=== PATIENT | female | born 1970 | race Hispanic/Latino ===

== ENCOUNTER → 2017-08-31 | Outpatient (CLI) | payer OTHER | LOC: RAH 14:07 | PROVIDERS: ATTEND Family Medicine | DX: R92.2 Inconclusive mammogram (principal); N64.52 Nipple discharge | CPT/HCPCS: 76641; 77066 ==

== ENCOUNTER → 2017-09-14 | Outpatient (CLI) | payer OTHER ==
[~2017-09-14] MED LIST: IOPAMIDOL-370 75 ML VIAL IV ONE
== END | disposition home or self-care (01) ==
LOC: RAH 08:44
PROVIDERS: ATTEND Family Medicine
DX: D44.11 Neoplasm of uncertain behavior of right adrenal gland (principal)
CPT/HCPCS: 74177; Q9967

== ENCOUNTER → 2019-02-02 | Outpatient (CLI) | payer OTHER | END | disposition home or self-care (01) | LOC: RAH 08:32 | PROVIDERS: ATTEND Family Medicine | DX: R92.8 Other abnormal and inconclusive findings on diagnostic imaging of breast (principal) | CPT/HCPCS: 77066 ==

== ENCOUNTER → 2021-06-18 | Outpatient (CLI) | payer OTHER | END | disposition home or self-care (01) | LOC: RAH 11:25 | PROVIDERS: ATTEND Family Medicine | DX: R92.2 Inconclusive mammogram (principal); R92.8 Other abnormal and inconclusive findings on diagnostic imaging of breast | CPT/HCPCS: 77066 ==

== ENCOUNTER → 2022-12-09 | Outpatient (CLI) | payer OTHER | END | disposition home or self-care (01) | LOC: RAH 13:59 | PROVIDERS: ATTEND Family Medicine | DX: Z12.31 Encounter for screening mammogram for malignant neoplasm of breast (principal) | CPT/HCPCS: 77067 ==

== ENCOUNTER → 2023-01-04 | Outpatient (CLI) | payer OTHER | END | disposition home or self-care (01) | LOC: SHCH 14:59 | PROVIDERS: ATTEND Internal Medicine Cardiovascular Disease | DX: I87.2 Venous insufficiency (chronic) (peripheral) (principal) | CPT/HCPCS: 93970 ==

== ENCOUNTER → 2023-02-16 | Outpatient (CLI) | payer OTHER, MEDICARE ==
[2023-02-16 16:27] LABS: CREATININE 1.1 mg/dL (0.5-1.5); POTASSIUM 4.1 mmol/L (3.5-5.1)
== END | disposition home or self-care (01) ==
LOC: LAB 14:40
PROVIDERS: ATTEND Internal Medicine Cardiovascular Disease
DX: I10 Essential (primary) hypertension (principal)
CPT/HCPCS: 36415; 80048

== ENCOUNTER → 2023-12-13 | Outpatient (CLI) | payer OTHER, MEDICARE | END | disposition home or self-care (01) | LOC: RAH 13:08 | PROVIDERS: ATTEND Family Medicine | DX: Z12.31 Encounter for screening mammogram for malignant neoplasm of breast (principal); R92.323 Mammographic fibroglandular density, bilateral breasts | CPT/HCPCS: 77067 ==

== ENCOUNTER 2024-02-03 23:39 | Observation (INO) | payer OTHER, MEDICARE ==
[~2024-02-03] VITALS: Ht 180.3 cm; Wt 121.7 kg
[2024-02-04] VITALS (13 sets, daily range): BP systolic 154–200; BP diastolic 73–87; PULSE 66–80; RESP 18–22; O2SAT 95–99
[2024-02-04] MEDS: ACETAMINOPHEN 500 MG TABLET PO ONE (00:55)
[2024-02-04] MEDS: TETANUS/DIPHTHERIA TOXOID [ADULT] 0.5 ML VIAL IM ONE (00:57)
[2024-02-04 00:58] LABS: BASOPHILS # (AUTO) 0.01 K/uL (0.00-0.20); BASOPHILS % (AUTO) 0.1 % (0.0-5.0); HEMATOCRIT 44.3 % (36-48); IMMATURE GRANULOCYTE ABSOLUTE 0.05 K/uL (0-1); LYMPHOCYTES # (AUTO) 0.4 K/uL (1.0-4.8); LYMPHOCYTES % (AUTO) 5.2 % (21.0-51.0); MEAN CORPUSCULAR HEMOGLOBIN 28.9 pg (27.0-33.0); MEAN CORPUSCULAR HGB CONC 33.2 g/dL (32.0-36.0); MEAN CORPUSCULAR VOLUME 87.2 fL (79-99); MONOCYTES # (AUTO) 0.1 K/uL (0.1-1.0); NEUTROPHILS # (AUTO) 6.5 K/uL (1.8-7.7); PLATELET COUNT (AUTO) 208 K/uL (130-400); RED BLOOD CELL COUNT(AUTO) 5.08 MIL/uL (4.00-5.50)
[2024-02-04 01:13] LABS: APPEARANCE,URINE CLEAR (CLEAR); BILIRUBIN,URINE NEGATIVE (NEGATIVE); COLOR,URINE LIGHT-YELLOW (YELLOW); GLUCOSE, URINE (UA) >=1000 mg/dL (NEGATIVE); KETONES,URINE 10 mg/dL (NEGATIVE); LEUKOCYTE ESTERASE ,URINE NEGATIVE Leu/uL (NEGATIVE); NITRATE,URINE NEGATIVE (NEGATIVE); OCCULT BLOOD,URINE MODERATE (NEGATIVE); PH,URINE 5.5 (5.0-8.0); PROTEIN,URINE 100 mg/dL (NEGATIVE); UROBILINOGEN,URINE 0.2 mg/dL (0.2-1.0)
[2024-02-04 01:15] LABS: ADD UA MICROSCOPIC YES
[2024-02-04 01:16] LABS: BACTERIA,URINE FEW /HPF (None Seen); MUCUS,URINE RARE LPF (None Seen); SQUAMOUS EPITHELIAL CELL,UR RARE /HPF (0-2)
[2024-02-04 01:19] LABS: ALBUMIN 3.5 g/dL (3.5-5.0); BILIRUBIN,TOTAL 0.5 mg/dL (0.2-1.0); CREATININE 1.4 mg/dL (0.5-1.0); POTASSIUM 4.5 mmol/L (3.5-5.1); TOTAL PROTEIN, SERUM 7.7 g/dL (6.0-8.3)
[2024-02-04] MEDS: 0.9%NACL 1000ML 1,000 ML IV ONE (01:39)
[2024-02-04] MEDS: INSULIN HUMULIN R 100 UNIT/ML 3ML IV STA (01:40)
[2024-02-04 02:28] LABS: AMPHET/METH SCREEN,URINE NEGATIVE (NEGATIVE); BARBITURATE SCREEN, URINE NEGATIVE (NEGATIVE); BENZODIAZEPINES SCREEN,URINE NEGATIVE (NEGATIVE); CANNABINOID SCREEN,URINE POSITIVE (NEGATIVE); COCAINE SCREEN,URINE POSITIVE (NEGATIVE); OPIATE SCREEN,URINE NEGATIVE (NEGATIVE); PHENCYCLIDINE SCREEN,URINE NEGATIVE (NEGATIVE)
[2024-02-04] MEDS: CEFTRIAXONE 2GM VIAL IVPB ONE (02:36)
[2024-02-04] MEDS: CEFTRIAXONE 1G VIAL IVPB SCH (03:00)
[2024-02-04] MEDS ORDERED: NITROGLYCERIN 0.4 MG SL TAB SL PRN ×2 (03:00→03:30)
[2024-02-04] MEDS ORDERED: MAG/ALUM/SIMETH 30 ML UDCUP PO PRN (03:00)
[2024-02-04] MEDS ORDERED: LACTULOSE 20 GM/30 ML UDCUP PO PRN (03:00)
[2024-02-04] MEDS ORDERED: ONDANSETRON 4MG INJ IV PRN (03:00)
[2024-02-04] MEDS ORDERED: ACETAMINOPHEN 325 MG TAB PO PRN ×2 (03:00)
[2024-02-04] MEDS ORDERED: 0.9%NACL 1000ML 1,000 ML IV SCH (03:00)
[2024-02-04 03:18] LABS: HEMOGLOBIN A1C 5.2 % (4.0-6.0)
[2024-02-04] MEDS: 0.9%NACL 1000ML 1,000 ML IV SCH (03:36)
[2024-02-04] MEDS: ENOXAPARIN SODIUM 120 MG/0.8ML SQ ONE (03:43)
[2024-02-04] MEDS ORDERED: HYDR-4060 PO (04:39)
[2024-02-04] MEDS ORDERED: ATOR40TA71 PO (04:39)
[2024-02-04] MEDS ORDERED: GLIP10TA19 PO (04:39)
[2024-02-04] MEDS ORDERED: FURO20TA4 PO (04:39)
[2024-02-04] MEDS ORDERED: METO-408 PO (04:39)
[2024-02-04] MEDS ORDERED: LISI40TA9 PO (04:39)
[2024-02-04] MEDS ORDERED: INSU100I24 SQ (04:39)
[2024-02-04] MEDS ORDERED: GABA-529 PO (04:39)
[2024-02-04] MEDS: ACETAMINOPHEN WITH CODEINE 1 TAB TAB PO PRN (04:41)
[2024-02-04] MEDS: GUAIFENESIN-DM 200/20 MG 10 ML PO PRN (04:41)
[2024-02-04] MEDS: INSULIN HUMULIN R 100 UNIT/ML 3ML SQ SCH (05:34)
[2024-02-04] MEDS: INSULIN HUMULIN R 100 UNIT/ML 3ML ONE (05:42)
[2024-02-04 05:59] LABS: POTASSIUM 4.3 mmol/L (3.5-5.1)
[2024-02-04] MEDS: IPRATROPIUM/ALBUTEROL SULFATE 3 ML SOLUTION IH SCH (06:48)
[2024-02-04] MEDS: FAMOTIDINE 20MG TAB PO SCH (08:55)
[2024-02-04] MEDS: ASPIRIN 81 MG EC TAB PO SCH (08:56)
[2024-02-04] MEDS: NICOTINE 7 MG/ 24 HR PATCH TD SCH (08:59)
[2024-02-04] MEDS ORDERED: ENOXAPARIN SODIUM 40 MG/0.4 ML SYRINGE SQ SCH (09:00)
[2024-02-04] MEDS: LISINOPRIL 40 MG TABLET PO SCH (13:08)
[2024-02-04] MEDS: HYDROCODONE/ACETAMINOPHEN 5/325 MG TAB PO PRN (13:09)
[2024-02-04] MEDS: HYDRALAZINE 20MG/ML VIAL IV PRN (15:03)
[2024-02-04] MEDS: CLONIDINE HCL 0.1 MG TABLET PO ONE (18:48)
[2024-02-04] MEDS: CLONIDINE HCL 0.1 MG TABLET PO SCH (19:49)
[2024-02-04] MEDS ORDERED: ENOXAPARIN SODIUM 120 MG/0.8ML SQ SCH (21:00)
[2024-02-04] MEDS ORDERED: ATORVASTATIN 40 MG TABLET PO SCH ×2 (21:00)
[2024-02-05] MEDS ORDERED: METOPROLOL SUCCINATE 25 MG TAB.SR.24H PO SCH (09:00)
[2024-02-05] MEDS ORDERED: FUROSEMIDE 20 MG TABLET PO SCH (09:00)
[2024-02-05] MEDS ORDERED: GABAPENTIN 100 MG CAPSULE PO SCH (09:00)
== END 2024-02-04 20:50 | disposition home or self-care (01) ==
LOC: EDH 23:39 → EDHIP 02-04 02:54 → 3AH 02-04 03:53
PROVIDERS: ADMIT Internal Medicine Pulmonary Disease; ATTEND Internal Medicine Pulmonary Disease
DX: S00.83XA Contusion of other part of head, initial encounter (principal); S80.12XA Contusion of left lower leg, initial encounter; E11.65 Type 2 diabetes mellitus with hyperglycemia; N30.00 Acute cystitis without hematuria; I12.9 Hypertensive chronic kidney disease with stage 1 through stage 4 chronic kidney disease, or unspecified chronic kidney disease; E11.22 Type 2 diabetes mellitus with diabetic chronic kidney disease; N18.9 Chronic kidney disease, unspecified; I21.A1 Myocardial infarction type 2; E66.01 Morbid (severe) obesity due to excess calories; F12.10 Cannabis abuse, uncomplicated; F14.10 Cocaine abuse, uncomplicated; F17.200 Nicotine dependence, unspecified, uncomplicated; Z79.899 Other long term (current) drug therapy; Z23 Encounter for immunization; W01.0XXA Fall on same level from slipping, tripping and stumbling without subsequent striking against object, initial encounter; Y93.89 Activity, other specified; Y92.89 Other specified places as the place of occurrence of the external cause; Y99.8 Other external cause status
CPT/HCPCS: 96374; 96372; 96361; 96375; 99285; 83036; 84484 ×3; 80053; 80305; 82140; 85025; 87086; 82948 ×4; 81001; 36415; 90714; 71045; 72100; 70486; 90471; 97161; 97530; 93005; 94640; G0378 ×17; J0696; J0360; J1650; J1815 ×5; 80048; 94664

== ENCOUNTER → 2024-04-19 | Outpatient (CLI) | payer OTHER, MEDICARE ==
[~2024-04-19] MED LIST changes: +ATOR40TA71 PO; +FURO20TA4 PO; +GABA-529 PO; +GLIP10TA19 PO; +HYDR-4060 PO; +INSU100I24 SQ; +IOHEXOL 350 MG/ML 100ML INFUS..BTL IV ONE; -IOPAMIDOL-370 75 ML VIAL IV ONE; +LISI40TA9 PO; +METO-408 PO; +metoPROLOL tartRATE 1 MG/ML 5ML VIAL IV ONE
== END | disposition home or self-care (01) ==
LOC: RAH 08:41
PROVIDERS: ATTEND Internal Medicine Cardiovascular Disease
DX: I25.10 Atherosclerotic heart disease of native coronary artery without angina pectoris (principal); M47.815 Spondylosis without myelopathy or radiculopathy, thoracolumbar region
CPT/HCPCS: 75574; J3490; Q9967

== ENCOUNTER → 2024-06-15 | Outpatient (CLI) | payer OTHER, MEDICARE ==
[~2024-06-15] MED LIST changes: -IOHEXOL 350 MG/ML 100ML INFUS..BTL IV ONE; -metoPROLOL tartRATE 1 MG/ML 5ML VIAL IV ONE
--- NOTE | 2024-06-16 08:32 | HMCSR ---
APPROVED REPORT EXAM: Two-dimensional and M-mode echocardiogram with Doppler and color Doppler. INDICATION ICD: Syncope and collapse R55 RISK FACTORS Hypertension Hyperlipidemia Diabetes 2D Dimensions RVDd4.0 cmLVEF(%)56.6 (>50%)LVED Vol(simp.)158.0 mL IVSd1.1 (0.7-1.1cm)FS(%)30 %LVES Vol(simp.)64.0 mL LVDd5.1 (3.8-5.6cm)LA (2D)4.4 (1.6-4.0cm)LVEF(%, simp.)59 % PWd1.1 (0.7-1.1cm)Ao Root(2D)2.7 (2.0-3.7cm)LA ESV INDEX (BP)37.94 mL/m2 LVDs3.6 (2.5-4.0cm)LVOT diam2.2 (1.8-2.4cm) IVC diam1.7 cm Aortic Valve AoV Vmax1.4 m/Shamar Peak GR7.7 mmHgLVOT Vmax1.0 m/s AoV VTI0.4 mAo Mean GR4.6 mmHgLVOT VTI0.25 m MIGDALIA (VMAX)2.8 cm2AVA (VTI) 2.8 cm2 Mitral Valve MV E Vmax88.4 cm/sDECEL Ksme509 ms MV A Nfif202.4 cm/s E/A ratio0.8 MR Max PG64 mmHg TDI E/E' Ryecof23.1E/E' Wjaijdu18.6 Pulmonary Valve PV Vmax1.1 m/sPV VTI0.27 mPV Mean GR3 mmHg PV Peak GR4.7 mmHgPI End Maryellen. Jeovany 0.6 cm/s Tricuspid Valve RAP (EST) 8 mmHg Left Ventricle Left ventricular cavity size is normal. There is normal LV segmental wall motion. There is mild aura ntric left ventricular hypertrophy. LVEF is 55-60%. Stage I diastolic dysfunction. Right Ventricle The right ventricle is normal size. The right ventricular systolic function is normal. Atria The left atrium is mildly dilated. The right atrium size is normal. Aortic Valve Aortic valve is trileaflet. Aortic valve leaflets are sclerotic but open well. No aortic regurgitatio n is present. There is no aortic valvular stenosis. Mitral Valve Mitral annular calcification is mild. Mitral valve leaflets are sclerotic but open well. Mitral regur gitation is trace. There is no mitral valve stenosis. Tricuspid Valve The tricuspid valve leaflets appear normal. There is no tricuspid valve regurgitation noted. Pulmonic Valve The pulmonic valve leaflets are thin and pliable; valve motion is normal. There is trace pulmonic robert vular regurgitation. Great Vessels The aortic root is normal in size. IVC is dilated and collapses >50% with inspiration. Pericardium No pericardial effusion. Conclusion LVEF is 55-60%. Stage I diastolic dysfunction. Mitral regurgitation is trace. There is trace pulmonic valvular regurgitation.
== END | disposition home or self-care (01) ==
LOC: SHCH 13:07
PROVIDERS: ATTEND Internal Medicine Cardiovascular Disease
DX: I08.0 Rheumatic disorders of both mitral and aortic valves (principal); R55 Syncope and collapse; E11.9 Type 2 diabetes mellitus without complications; E78.5 Hyperlipidemia, unspecified; I11.9 Hypertensive heart disease without heart failure
CPT/HCPCS: 93306

== ENCOUNTER → 2024-08-09 | Outpatient (CLI) | payer OTHER, MEDICARE ==
--- NOTE | 2024-08-10 08:12 | HMCSR ---
APPROVED REPORT Laterality: Bilateral Indications i73.9 VELOCITY AND DOPPLER WAVEFORM ANALYSIS FIELD SERVICE REPRESENTATIVE (R) 186.0cm/sec, Triphasic, FIELD SERVICE REPRESENTATIVE (L) 93.3cm/sec, Triphasic, Prof Fem Art. (R) 99.6cm/sec, Triphasic, Prof Fem Art. (L) 93.3cm/sec, Triphasic, Fem Art Prox. (R) 103.0cm/sec, Triphasic, Fem Art Prox. (L) 136.7cm/sec, Triphasic, Fem Art Mid. (R) 171.3cm/sec, Triphasic, Fem Art Mid. (L) 121.6cm/sec, Triphasic, Fem Art Dist (R) 105.4cm/sec, Triphasic, Fem Art Dist. (L) 163.1cm/sec, Triphasic, Pop Art(AK) (R) 130.8cm/sec, Triphasic, Pop Art (AK) (L) 132.1cm/sec, Triphasic, Pop Art (Fossa)(R) 114.6cm/sec, Triphasic, Pop Art (Fossa) (L) 148.4cm/sec, Triphasic, Pop Art(BK) (R) 133.1cm/sec, Triphasic, Pop Art (BK) (L) 150.1cm/sec, Triphasic, CUSTOMER SERVICE ADVOCATE Prox. (R) 78.1cm/sec, Biphasic, CUSTOMER SERVICE ADVOCATE Prox. (L) 136.7cm/sec, Triphasic, CUSTOMER SERVICE ADVOCATE Mid. (R) 90.6cm/sec, Biphasic, CUSTOMER SERVICE ADVOCATE Mid. (L) 101.4cm/sec, Triphasic, CUSTOMER SERVICE ADVOCATE Dist. (R) 63.5cm/sec, Biphasic, CUSTOMER SERVICE ADVOCATE Dist. (L) 91.4cm/sec, Triphasic, Per Art Prox. (R) 106.5cm/sec, Triphasic, Per Art Prox. (L) 100.5cm/sec, Triphasic, Per Art Mid. (R) 40.0cm/sec, Monophasic, Per Art Mid. (L) 96.9cm/sec, Triphasic, Per Art Dist. (R) 35.9cm/sec, Monophasic, Per Art Dist. (L) 88.3cm/sec, Triphasic, LIZZETH Prox. (R) 151.8cm/sec, Triphasic, LIZZETH Prox. (L) 116.9cm/sec, Triphasic, LIZZETH Mid. (R) 65.6cm/sec, Triphasic LIZZETH Mid. (L) 90.3cm/sec, Triphasic, LIZZETH Dist. (R) 113.5cm/sec, Triphasic, LIZZETH Dist. (L) 97.2cm/sec, Triphasic, Technologist Impression No evidence of significant arterial insufficiency of bilateral lower extremities. Conclusion Monophasic waveforms in the right peroneal artery. Conclusion Monophasic waveforms in the right peroneal artery.
== END | disposition home or self-care (01) ==
LOC: SHCH 08:36
PROVIDERS: ATTEND Internal Medicine Cardiovascular Disease
DX: I73.9 Peripheral vascular disease, unspecified (principal)
CPT/HCPCS: 93925